=== PATIENT | female | born 1960 | race Caucasian/White ===

== ENCOUNTER 2018-03-19 12:42 | Inpatient (IN) ==
[2018-03-19 13:15] LABS: Baso % (Auto) 0.7 % (0.0-2.0); Eos # (Auto) 0.1 th/mm3 (0.0-0.4); Eos % (Auto) 2.6 % (0.0-4.0); Hematocrit 41.2 % (35.0-46.0); Hemoglobin 13.9 gm/dL (11.6-15.3); Lymph # (Auto) 1.6 th/mm3 (1.0-4.8); Lymph % (Auto) 32.3 % (9.0-44.0); Mean Corpuscular HGB Conc 33.9 % (32.0-36.0); Mean Corpuscular Hemoglobin 26.1 pg (27.0-34.0); Mean Corpuscular Volume 77.1 fL (80.0-100.0); Mean Platelet Volume 10.1 fL (7.0-11.0); Mono # (Auto) 0.4 th/mm3 (0.0-0.9); Mono % (Auto) 7.3 % (0.0-8.0); Neut # (Auto) 2.8 th/mm3 (1.8-7.7); Neut % (Auto) 57.1 % (16.0-70.0); Platelet Count 175 th/mm3 (150-450); Red Blood Count 5.33 mil/mm3 (4.00-5.30); Red Cell Distribution Width 15.3 % (11.6-17.2); White Blood Count 4.9 th/mm3 (4.0-11.0)
[2018-03-19 13:44] LABS: Alanine Aminotransferase 51 U/L (10-53); Albumin 3.8 g/dL (3.4-5.0); Anion Gap 10 meq/L (5-15); Aspartate Aminotransferase 37 U/L (15-37); Blood Urea Nitrogen 20 mg/dL (7-18); Calcium 9.3 mg/dL (8.5-10.1); Carbon Dioxide 25.5 meq/L (21.0-32.0); Chloride 102 meq/L (98-107); Glomerular Filtration Rate 42 mL/min (>89); Glucose,Random 436 mg/dL (74-106); Potassium 4.1 meq/L (3.5-5.1); Sodium 137 meq/L (136-145)
[2018-03-19 14:02] LABS: Alkaline Phosphatase 159 U/L (45-117); Thyroid Stimulating Hormone 0.896 uIU/mL (0.358-3.740); Total Protein 8.2 g/dL (6.4-8.2)
[2018-03-19 16:10] LABS: Bilirubin,Urine Negative (Negative); Clarity,Urine Clear (Clear); Color,Urine Straw (Yellw/Straw); Glucose,Urine (UA) 500 or Greater mg/dL (Negative); Leukocyte Esterase,Urine Negative (Negative); Nitrite,Urine Negative (Negative); Specific Gravity,Urine 1.017 (1.002-1.035); Squamous Epithelial Cell,Urine 1 /hpf (0-5)
[2018-03-19 16:15] LABS: Amphetamine Screen,Urine Neg (Neg); Barbiturate Screen,Urine Neg (Neg); Cannabinoid Screen,Urine Neg (Neg); Cocaine Screen,Urine Neg (Neg)
[2018-03-19 16:17] LABS: Opiate Screen,Urine Neg (Neg)
--- NOTE | 2018-03-19 17:48 | ED ---
HPI General Chief Complaint: Psychiatric Symptoms Stated Complaint: psych eval Time Seen by Provider: 03/19/18 16:44 Source: patient Mode of arrival: ambulatory Limitations: no limitations History of Present Illness HPI Narrative: 57-year-old female presents to the emergency room under a Henderson act for evaluation of delusions. History is difficult to obtain as patient has flight of ideas and pressured speech. Patient states she believes her has a mistress and gives a long, convoluted story about why she knows her is cheating on her and how knowing this information has caused her to develop hypertension and diabetes. She states she collects items around the house as proof that her is cheating on her. As a method of revenge, she put sand in her daughter's gasoline tank because she thought that her was giving it to the mistress. She then immediately starts talking about how her 's family members are illegal immigrant from [place] causing bombs throughout the [facility] for which she has been alerting the officials. Patient denies any medical complaints today. She denies hallucinations or delusions. Denies suicidal homicidal ideation. MD complaint: feels depressed Onset (ago): day(s) Duration: constant History of same: Yes Relieving factors: none Exacerbating factors: none Associated psychiatric symptoms: none Associated symptoms: denies other symptoms Treatments prior to arrival: placed on mental health hold Related Data Home Medications Medication Instructions Recorded Confirmed Unable to Obtain Home Meds 03/19/18 03/20/18 Allergies Allergy/AdvReac Type Severity Reaction Status Date / Time penicillin G Allergy Mild RASH Verified 03/20/18 00:20 Review of Systems ROS Unobtainable All other systems reviewed negative except as stated in HPI PMFSH Social History Social History Substance History: No History of Abuse Second Hand Smoke Exposure: No Smoking Status: Former smoker Tobacco Type: Cigarettes How Often Do You Have a Drink Containing Alcohol: Never Recent Travel in [facility] within the Last 8 Weeks: No Recent Out of Country Travel within the Last 8 Weeks: No Immunization History Tetanus Immunization: <5 Years Hx Influenza Vaccine This Season: No Exam Narrative Exam Narrative: GENERAL: Well-nourished, well-developed female in no acute distress. Afebrile. Ambulatory. SKIN: Focused skin assessment warm/dry. HEAD: Normocephalic. EYES: No scleral icterus. No injection or drainage. NECK: Supple, trachea midline. No JVD or lymphadenopathy. CARDIOVASCULAR: Regular rate and rhythm without murmurs, gallops, or rubs. RESPIRATORY: Breath sounds equal bilaterally. No accessory muscle use. PSYCHIATRIC: No hallucinations. Pressured speech. Flight of ideas. Good mood. Normal affect. Course Initial Documented Vital Signs Temperature 98.8 F 03/19/18 12:49 Pulse Rate 87 03/19/18 12:49 Respiratory Rate 16 03/19/18 12:49 Blood Pressure 156/83 H 03/19/18 12:49 Pulse Oximetry 99 03/19/18 12:49 Last Documented Vital Signs Temperature 97.5 F L 03/20/18 17:45 Pulse Rate 94 H 03/20/18 17:45 Respiratory Rate 18 03/20/18 17:45 Blood Pressure 143/74 H 03/20/18 17:45 Pulse Oximetry 99 03/20/18 17:45 Medical Decision Making MDM Narrative Medical decision making narrative: 57-year-old female presents to the emergency room under a Henderson act. According to the Henderson act, patient was acting delusional. On exam, patient has pressured speech and flight of ideas. She denies any physical or medical complaints. CBC is unremarkable. CMP shows mildly elevated creatinine of 1.3 and elevated glucose. Patient has a history diabetes. She is medically cleared for psychiatric evaluation. Patient was seen by psychiatrist and Henderson act was lifted. She is stable for outpatient psychiatric follow-up. Differential Diagnosis Differential Diagnosis: Psychosis, mood disorder, schizophrenia Lab Data Result diagrams: 03/19/18 12:55 03/19/18 12:55 Lab Results 03/19/18 03/19/18 03/19/18 Range/Units 12:55 12:55 13:00 WBC 4.9 (4.0-11.0) th/mm3 RBC 5.33 H (4.00-5.30) mil/mm3 Hgb 13.9 (11.6-15.3) gm/dL Hct 41.2 (35.0-46.0) % MCV 77.1 L (80.0-100.0) fL MCH 26.1 L (27.0-34.0) pg MCHC 33.9 (32.0-36.0) % RDW 15.3 (11.6-17.2) % Plt Count 175 (150-450) th/mm3 MPV 10.1 (7.0-11.0) fL Neut % (Auto) 57.1 (16.0-70.0) % Lymph % (Auto) 32.3 (9.0-44.0) % [place] % (Auto) 7.3 (0.0-8.0) % Eos % (Auto) 2.6 (0.0-4.0) % Baso % (Auto) 0.7 (0.0-2.0) % Neut # (Auto) 2.8 (1.8-7.7) th/mm3 Lymph # (Auto) 1.6 (1.0-4.8) th/mm3 [place] # (Auto) 0.4 (0.0-0.9) th/mm3 Eos # (Auto) 0.1 (0.0-0.4) th/mm3 Baso # (Auto) 0.0 (0.0-0.2) th/mm3 WBC Differential . Differential Comment Auto diff final Sodium 137 (136-145) meq/L Potassium 4.1 (3.5-5.1) meq/L Chloride 102 (98-107) meq/L Carbon Dioxide 25.5 (21.0-32.0) meq/L Anion Gap 10 (5-15) meq/L BUN 20 H (7-18) mg/dL Creatinine 1.31 H (0.50-1.00) mg/dL Estimated GFR 42 L (>89) mL/min POC Glucose (68-110) mg/dl Random Glucose 436 H (74-106) mg/dL Calcium 9.3 (8.5-10.1) mg/dL Total Bilirubin 0.7 (0.2-1.0) mg/dL AST 37 (15-37) U/L ALT 51 (10-53) U/L Alkaline Phosphatase 159 H (45-117) U/L Total Protein 8.2 (6.4-8.2) g/dL Albumin 3.8 (3.4-5.0) g/dL TSH 0.896 (0.358-3.740) uIU/mL Urine Color (Yellw/Straw) Urine Clarity (Clear) Urine pH (5.0-8.5) Ur Specific [place] (1.002-1.035) Urine Protein (Neg-Trace) mg/dL Urine Glucose (UA) (Negative) mg/dL Urine Ketones (Negative) mg/dL Urine Occult Blood (Negative) Urine Nitrate (Negative) Urine Bilirubin (Negative) Urine Urobilinogen (Less than 2) mg/dL Ur Leukocyte Esterase (Negative) Urine RBC (0-3) /hpf Urine WBC (0-5) /hpf Ur Squamous Epith Cells (0-5) /hpf Micro UA Comment Urine Culture Comments Urine Opiates Screen Neg (Neg) Ur Barbiturates Screen Neg (Neg) Ur Amphetamines Screen Neg (Neg) U Benzodiazepines Scrn Neg (Neg) Urine Cocaine Screen Neg (Neg) U Cannabinoids Screen Neg (Neg) Serum Alcohol Less than 3 (0-5) mg/dL 03/19/18 03/20/18 Range/Units 13:00 07:59 WBC (4.0-11.0) th/mm3 RBC (4.00-5.30) mil/mm3 Hgb (11.6-15.3) gm/dL Hct (35.0-46.0) % MCV (80.0-100.0) fL MCH (27.0-34.0) pg MCHC (32.0-36.0) % RDW (11.6-17.2) % Plt Count (150-450) th/mm3 MPV (7.0-11.0) fL Neut % (Auto) (16.0-70.0) % Lymph % (Auto) (9.0-44.0) % [place] % (Auto) (0.0-8.0) % Eos % (Auto) (0.0-4.0) % Baso % (Auto) (0.0-2.0) % Neut # (Auto) (1.8-7.7) th/mm3 Lymph # (Auto) (1.0-4.8) th/mm3 [place] # (Auto) (0.0-0.9) th/mm3 Eos # (Auto) (0.0-0.4) th/mm3 Baso # (Auto) (0.0-0.2) th/mm3 WBC Differential Differential Comment Sodium (136-145) meq/L Potassium (3.5-5.1) meq/L Chloride (98-107) meq/L Carbon Dioxide (21.0-32.0) meq/L Anion Gap (5-15) meq/L BUN (7-18) mg/dL Creatinine (0.50-1.00) mg/dL Estimated GFR (>89) mL/min POC Glucose 390 H (68-110) mg/dl Random Glucose (74-106) mg/dL Calcium (8.5-10.1) mg/dL Total Bilirubin (0.2-1.0) mg/dL AST (15-37) U/L ALT (10-53) U/L Alkaline Phosphatase (45-117) U/L Total Protein (6.4-8.2) g/dL Albumin (3.4-5.0) g/dL TSH (0.358-3.740) uIU/mL Urine Color Straw (Yellw/Straw) Urine Clarity Clear (Clear) Urine pH 6.0 (5.0-8.5) Ur Specific [place] 1.017 (1.002-1.035) Urine Protein 100 H (Neg-Trace) mg/dL Urine Glucose (UA) 500 or greater (Negative) mg/dL Urine Ketones Negative (Negative) mg/dL Urine Occult Blood Small H (Negative) Urine Nitrate Negative (Negative) Urine Bilirubin Negative (Negative) Urine Urobilinogen Less than 2 (Less than 2) mg/dL Ur Leukocyte Esterase Negative (Negative) Urine RBC Less than 1 (0-3) /hpf Urine WBC 1 (0-5) /hpf Ur Squamous Epith Cells 1 (0-5) /hpf Micro UA Comment Culture not ind Urine Culture Comments Culture not ind Urine Opiates Screen (Neg) Ur Barbiturates Screen (Neg) Ur Amphetamines Screen (Neg) U Benzodiazepines Scrn (Neg) Urine Cocaine Screen (Neg) U Cannabinoids Screen (Neg) Serum Alcohol (0-5) mg/dL Discharge Plan Discharge Disposition Patient Disposition: 01 Discharge Home Discharge Condition Condition: Stable Discharge Order Discharge Orders: Discharge Order (Routine); Ordered 03/20/18 Ordered By: Kaitlynn Burgos Physicians Team ED Provider: Ofelia Faye ED Midlevel Provider: Kaitlynn Burgos Primary Care Provider: UNKNOWN, Attending Provider: Case Zafar Other Providers: Chuck Alvarez Thendrex Discharge Interventions Interventions: ED Discharge Assessment Last Done: 03/20/18 12:02 Vital Signs Last Done: 03/20/18 06:39 Status ED Status: Left Department Discharge Information Discharge Date/Time: 03/20/18 12:02
[2018-03-19] MEDS ORDERED: Acetaminophen 325 MG Tablet PO ONE (23:37)
[2018-03-20] MEDS ORDERED: Aluminum/Magnesium/Simethacone Susp 30 ML UDC PO PRN (09:26)
[2018-03-20] MEDS ORDERED: Bisacodyl 10 MG Supp RECTAL PRN (09:26)
--- NOTE | 2018-03-20 13:35 | P.HPPSY ---
Provisional Diagnosis Admission Date: March 20, 2018 11:55 [place] I.: Unspecified psychosis, r/o late onset schizophrenia, schizoaffective disorder, bipolar type, r/o major neurocognitive disorder Competence Certification of Person's Competence To Provide Express and Informed Consent I have personally examined Pilar Dubois, a person being served at [facility] on, March 20, 2018 1311. Express and informed consent means consent voluntarily given in writing, by a competent person, after sufficient explanation and disclosure of the subject matter involved to enable the person to make a knowing and willful decision without any element of force, fraud, deceit, duress, or other form of constraint or coercion. This person is 18 years of age or older, is not now known to be incompetent to consent to treatment with a guardian advocate, and does not have a health care surrogate or proxy currently making medical treatment decisions. I have found this person to be one of the following: [] Competent to provide express and informed consent, as defined above, for voluntary admission to this facility and is competent to provide express and informed consent for treatment. He/she has the consistent capacity to make well reasoned, willful, and knowing decisions concerning his or her medical or mental health treatment. The person fully and consistently understands the purpose of the admission for examination/placement and is fully capable of personally exercising all rights [place] [x] Incompetent to provide express and informed consent to voluntary admission, and this is incompetent to provide express and informed consent to treatment. The person must be transferred to involuntary status and a petition for a guardian advocate filed with the Circuit Court. [] Refusing to provide express and informed consent to voluntary admission but is competent to provide express and informed consent for treatment. The person must be discharged or transferred to involuntary status. Form shall be completed within 24 hours of a person's arrival at the receiving facility and filed in the clinical record of each person: 1. Admitted on a voluntary basis 2. Permitted to provide express and informed consent to his/her own treatment 3. Allowed to transfer from involuntary to voluntary status 4. Prior to permitting a person to consent to his or her own treatment after having been previously found incompetent to consent to treatment. History of Present Illness Capacity: Lacks capacity History of Present Illness: The patient is 57-year-old woman, domiciled with her and a brother who is mentally challenged in [place], mother of 4 adult kids, unemployed, supported by Social Security, with a psychiatric history of schizoaffective disorder, unspecified psychosis, 2 previous psychiatric hospitalizations, both here at [facility], one in 2014, another one on the 2016 under the care of Dr. Mobley, documentation reviewed, history of noncompliant with medications, medical history of CVA, hypertension, diabetes mellitus, CAD, who presents to the emergency room under a Henderson act for evaluation of delusions. Initially in ER history was difficult to obtain as patient has flight of ideas and pressured speech. Patient states she believes her has a mistress and gives a long, convoluted story about why she knows her is cheating on her and how knowing this information has caused her to develop hypertension and diabetes. She states she collects items around the house as proof that her is cheating on her. As a method of revenge, she put sand in her daughter's gasoline tank because she thought that her was giving it to the mistress. She then immediately starts talking about how her 's family members are illegal immigrant from [place] causing bombs throughout the [facility] [[email or web address]] for which she has been alerting the officials. She also reports that she has found that there is a connection between some TV show and what is going on between her and his mistress. She says that her mistress is actually his niece, who is 22 years old and is already of him. She claims that they have are both plotting to get her out of her house and they are pain to people to call her house thinking that her voices telling her that they want up bay her car "and this is the reason why I put sand inside my car". During my evaluation in the ER the patient is quite internally preoccupied, suspicious, making several paranoid statements regarding the cameras in the unit and the staff. No agitated or aggressive, but quite irritable. She denies suicidal and homicidal ideation, she denies visual and auditory hallucinations. The patient is oriented 3, with no attention deficit, no fluctuation of consciousness, but impairment in immediate and recent recall. Of 3 words, the patient could not remember any of them in 5 minutes. However she has a good abstraction and executive function, good concentration and language. MMS is 26/30. Collateral information from her daughter, Fadia jackson, , was obtained, and she clarifies that her mother has been quite decompensated and escalated in the last 2 weeks. She says that she put sand knowing her car, but in her daughter's making allegations that her daughter is plotting with her to get her out of her house. She also clarifies that the patient has been very aggressive toward her and her brother who is mentally challenged. She states that the patient has been so aggressive with her , that her has been thinking in putting orders of protection against her. The patient has history of schizophrenia, 2 previous psychiatric admissions, she said that the patient does not accept the fact that she has a mental illness, she does not take her medications. She also clarifies that those alligations stating that her father is cheating on her are actually based in the fact that several years ago 1 of her family members became of her uncle "and it was a big drama in the fact, but nothing like that is happening right now". Past psychiatric history: schizoaffective disorder, unspecified psychosis, 2 previous psychiatric hospitalizations, both here at [facility], one in 2014, another one on the 2015 under the care of Dr. Mobley, documentation reviewed , history of noncompliant with medications, Past medical history of CVA, hypertension, diabetes mellitus, CAD Family psychiatric history: She has a brother who is intellectually disabled Substance history: The patient does not use any drugs or alcohol Social history: The patient was born in [facility], she lives in [facility] with her and a brother who is mentally disabled, she has 4 adult kids, unemployed, supported by Social Security - Inpatient Certification I certify that the inpatient services were ordered in accordance with Medicare regulations governing the order. This includes certification that hospital inpatient services are reasonable and necessary and in the case of services not specified as inpatient-only under 42 CFR 419.22(n), that they are appropriately provided as inpatient services in accordance to with the 2-midnight benchmark under 43 CFR 412.3(e) I certify that inpatient psychiatric hospital services are medically necessary. Evaluation and treatment and/or diagnostic testing are expected to improve the patient's condition. The patient needs on a daily basis, active treatment furnished directly by or requiring the supervision of inpatient psychiatric facility personnel. Estimated Total Length of Stay (Days): 7 Plans for Post Hospital Care: Home Review of Systems Constitutional: Denies anorexia, Denies body ache(s), Denies chills, Denies daytime sleepiness, Denies excessive sweating, Denies fatigue, Denies fever(s), Denies headache(s), Denies increased appetite, Denies lack of energy, Denies malaise, Denies night sweats, Denies weakness, Denies weight gain, Denies weight loss, Denies other Eyes: Denies blind spots, Denies blurry vision, Denies bulging eyes, Denies change in vision, Denies double vision, Denies discharge, Denies dry eyes, Denies floaters, Denies irritation, Denies itchy eyes, Denies loss of vision, Denies pain, Denies requires corrective lenses, Denies sensitivity to light, Denies other Ears, Nose, Mouth, and Throat: Denies abnormal hearing, Denies bleeding gums, Denies bad breath, Denies change in voice, Denies dental pain, Denies difficulty swallowing, Denies dizziness, Denies dry mouth, Denies ear discharge , Denies ear pain, Denies facial pain, Denies headache(s), Denies hearing loss, Denies hoarseness, Denies lip swelling, Denies nosebleed, Denies mouth lesions, Denies mouth pain, Denies nasal congestion, Denies nasal discharge, Denies nasal obstruction, Denies nasal trauma, Denies neck lump, Denies neck pain, Denies nose pain, Denies pain with swallowing, Denies poor balance, Denies post nasal drip, Denies ringing in the ears, Denies sinus pain, Denies sinus pressure , Denies sore throat, Denies throat swelling, Denies tongue swelling, Denies other Cardiovascular: Denies chest pain, Denies chest pain at rest, Denies chest pain with activity, Denies excessive sweating, Denies fainting, Denies fast heart rate, Denies foot swelling, Denies generalized swelling, Denies irregular heart rhythm, Denies leg pain with activity, Denies leg sores, Denies leg swelling, Denies lightheadedness, Denies radiating jaw, neck or arm pain, Denies rapid, pounding, or irregular heartbeat, Denies shortness of breath, Denies shortness of breath with activity, Denies shortness of breath when lying down, Denies shortness of breath causing sudden awakening, Denies slow heart rate, Denies other Respiratory: Denies change in phlegm color, Denies chest congestion, Denies cough, Denies coughing up blood, Denies excessive phlegm production, Denies pain on inspiration, Denies pain with cough, Denies shortness of breath, Denies shortness of breath with activity, Denies snoring, Denies stridor, Denies wheezing, Denies other Gastrointestinal: Denies abdominal pain, Denies belching, Denies black, tarry stools, Denies bloating, Denies bright, red blood in stools, Denies change in bowel habits, Denies constant urge to pass stool, Denies change in stools, Denies coffee ground vomit, Denies constipation, Denies cramping, Denies difficulty swallowing, Denies excessive passing of gas, Denies feeling full early, Denies heartburn, Denies incontinent of stools, Denies loose stools, Denies nausea, Denies pain with swallowing, Denies vomiting, Denies vomiting blood, Denies other Genitourinary: Denies abnormal periods, Denies abnormal vaginal bleeding, Denies absent period, Denies bleeding between periods, Denies blood in urine, Denies difficulty starting urination, Denies difficulty urinating, Denies dribbling after urination, Denies frequent nighttime urination, Denies genital itching, Denies genital lesions, Denies heavy periods, Denies hot flashes, Denies light periods, Denies nipple discharge, Denies painful intercourse, Denies painful periods, Denies painful urination, Denies pelvic pain, Denies prolapse symptoms, Denies sexual problems, Denies side pain, Denies urinary incontinence, Denies urinary urgency, Denies vaginal discharge, Denies vaginal dryness, Denies vaginal odor, Denies vaginal itching, Denies other Musculoskeletal: Denies abnormal walking, Denies back pain, Denies body aches, Denies decreased muscle mass, Denies deformity, Denies joint pain, Denies joint swelling, Denies limited joint movement, Denies loss of height, Denies muscle cramps, Denies muscle weakness, Denies neck pain, Denies numbness, Denies radiating pain into limb, Denies stiffness, Denies tingling, Denies other Skin/Breast: Denies acne, Denies bleeding lesions, Denies boil, Denies breast swelling, Denies breast skin changes, Denies breast pain, Denies breast lump, Denies change in breast shape, Denies change in hair, Denies change in skin color, Denies changing lesions, Denies dry skin, Denies excessive hair growth, Denies hair loss, Denies itching, Denies lesions, Denies nail changes, Denies new lesions, Denies nipple discharge, Denies non-healing lesions, Denies redness , Denies sensitivity to light, Denies rash, Denies skin pain, Denies skin ulcer , Denies sores, Denies stretch vernon, Denies unusual bruising, Denies wounds, Denies yellowing of the skin, Denies other Neurologic: Denies abnormal hearing, Denies abnormal movements, Denies abnormal speech, Denies abnormal walking, Denies behavioral changes, Denies burning sensations, Denies confusion, Denies dizziness, Denies fainting, Denies frequent falls, Denies headache(s), Denies lack of coordination, Denies localized weakness, Denies loss of vision, Denies memory loss, Denies numbness, Denies other visual disturbances, Denies radiating pain, Denies restless legs, Denies convulsions, Denies seizure-like activity, Denies sensory deficit, Denies tingling, Denies tingling/numbness/burning sensations, Denies tremor(s), Denies unsteadiness, Denies weakness, Denies other Psychiatric: Reports anxiety, Reports other (Paranoia, ideas of reference, aggressive behavior), Denies abnormal sleep pattern, Denies behavioral changes, Denies change in appetite, Denies change in sex drive, Denies confusion, Denies depression, Denies difficulty concentrating, Denies hearing things others do not hear, Denies hopelessness, Denies irritability, Denies lack of enjoyment, Denies memory loss, Denies mood swings, Denies panic attacks, Denies paranoia, Denies seeing things others do not see, Denies sensing things others do not sense, Denies tactile hallucinations, Denies thoughts of hurting/killing others , Denies thoughts of hurting/killing yourself Endocrine: Denies cold intolerance, Denies excessive sweating, Denies flushing, Denies heat intolerance, Denies increased hunger, Denies increased thirst, Denies increased urination, Denies rapid, pounding, or irregular heartbeat, Denies other Hematologic/Lymphatic: Denies easy bleeding, Denies easy bruising, Denies enlarged lymph nodes, Denies other Allergic/Immunologic: Denies GI upset with certain foods, Denies hives, Denies itchy eyes, Denies lip swelling, Denies seasonal runny nose, Denies throat swelling, Denies tongue swelling, Denies wheezing, Denies other PMFSH - History History Provided By: Patient - Tobacco History Second Hand Smoke Exposure: No Tobacco Use In Past 30 Days: No Smoking Status: Former smoker Tobacco Type: Cigarettes - Alcohol History How Often Do You Have a Drink Containing Alcohol: Never - Substance Use History Substance History: No History of Abuse - Travel History Recent Travel in the [facility] [[email or web address]] Within the Last 8 Weeks: No Recent Travel Out of the Country Within the Last 8 Weeks: No - Immunization History Tetanus Immunization: <5 Years Hx Influenza Vaccine This Season: No Medications and Allergies Active Medications: Active Medications Al Hydrox/Mg Hydrox/Simethicone (Mag-Al Plus Susp Liq) 30 ml PO Q6H PRN PRN Reason: DYSPEPSIA Al Hydroxide/Mg Hydroxide (Milk Of Magnesia Liq) 30 ml PO Q12H PRN PRN Reason: Mild Constipation Bisacodyl (Dulcolax Supp) 10 mg RECTAL DAILY PRN PRN Reason: SEVERE CONSITIPATION Lactulose (Lactulose Liq) 30 ml PO DAILY PRN PRN Reason: SEVERE CONSITIPATION Senna/Docusate Sodium (Courtney-Colace) 1 tab PO BID JOSE Sennosides (Senokot) 17.2 mg PO Q12H PRN PRN Reason: Moderate Constipation Venlafaxine HCl (Effexor) 25 mg PO BID JOSE Allergies Allergy/AdvReac Type Severity Reaction Status Date / Time penicillin G Allergy Mild RASH Verified 03/20/18 00:20 Home Medications Medication Instructions Recorded Confirmed Type Unable to Obtain Home Meds 03/19/18 03/20/18 History Results - Labs CBC & Chem 7: 03/19/18 12:55 03/19/18 12:55 Labs: Laboratory Results - last 24 hr 03/19/18 03/19/18 03/19/18 12:55 12:55 13:00 WBC 4.9 RBC 5.33 H Hgb 13.9 Hct 41.2 MCV 77.1 L MCH 26.1 L MCHC 33.9 RDW 15.3 Plt Count 175 MPV 10.1 Neut % (Auto) 57.1 Lymph % (Auto) 32.3 [place] % (Auto) 7.3 Eos % (Auto) 2.6 Baso % (Auto) 0.7 Neut # (Auto) 2.8 Lymph # (Auto) 1.6 [place] # (Auto) 0.4 Eos # (Auto) 0.1 Baso # (Auto) 0.0 WBC Differential . Differential Comment Auto diff final Sodium 137 Potassium 4.1 Chloride 102 Carbon Dioxide 25.5 Anion Gap 10 BUN 20 H Creatinine 1.31 H Estimated GFR 42 L POC Glucose Random Glucose 436 H Calcium 9.3 Total Bilirubin 0.7 AST 37 ALT 51 Alkaline Phosphatase 159 H Total Protein 8.2 Albumin 3.8 TSH 0.896 Urine Color Urine Clarity Urine pH Ur Specific [place] Urine Protein Urine Glucose (UA) Urine Ketones Urine Occult Blood Urine Nitrate Urine Bilirubin Urine Urobilinogen Ur Leukocyte Esterase Urine RBC Urine WBC Ur Squamous Epith Cells Micro UA Comment Urine Culture Comments Urine Opiates Screen Neg Ur Barbiturates Screen Neg Ur Amphetamines Screen Neg U Benzodiazepines Scrn Neg Urine Cocaine Screen Neg U Cannabinoids Screen Neg Serum Alcohol Less than 3 03/19/18 03/20/18 13:00 07:59 WBC RBC Hgb Hct MCV MCH MCHC RDW Plt Count MPV Neut % (Auto) Lymph % (Auto) [place] % (Auto) Eos % (Auto) Baso % (Auto) Neut # (Auto) Lymph # (Auto) [place] # (Auto) Eos # (Auto) Baso # (Auto) WBC Differential Differential Comment Sodium Potassium Chloride Carbon Dioxide Anion Gap BUN Creatinine Estimated GFR POC Glucose 390 H Random Glucose Calcium Total Bilirubin AST ALT Alkaline Phosphatase Total Protein Albumin TSH Urine Color Straw Urine Clarity Clear Urine pH 6.0 Ur Specific [place] 1.017 Urine Protein 100 H Urine Glucose (UA) 500 or greater Urine Ketones Negative Urine Occult Blood Small H Urine Nitrate Negative Urine Bilirubin Negative Urine Urobilinogen Less than 2 Ur Leukocyte Esterase Negative Urine RBC Less than 1 Urine WBC 1 Ur Squamous Epith Cells 1 Micro UA Comment Culture not ind Urine Culture Comments Culture not ind Urine Opiates Screen Ur Barbiturates Screen Ur Amphetamines Screen U Benzodiazepines Scrn Urine Cocaine Screen U Cannabinoids Screen Serum Alcohol Exam Vital signs: Vital Signs 03/19/18 22:54 03/20/18 06:39 Pulse Rate 104 H 100 H Respiratory Rate 18 17 Blood Pressure 146/85 H 148/79 H Pulse Oximetry 98 98 Intake & Output 03/19/18 03/20/18 03/20/18 18:59 06:59 18:59 Intake Total 240 / 240 Balance 240 / 240 Weight 86.183 kg Intake: Oral 240 / 240 Narrative: No EPS, no psychomotor agitation, no gait disturbance, no psychomotor retardation, no catatonia Mental Status Examination Appearance: Appropriate Consciousness: Alert Orientation: x4 Motor Activity: Normal gait Speech: Unremarkable Language: Adequate Fund of Knowledge: Adequate Attention and Concentration: Adequate Memory: Impaired Mood: Angry, Oppositional Affect: Irritable, Labile Thought Process & Associations: Loose associations Thought Content: Bizarre thinking, Ideas of reference, Preoccupations Delusion Type: Paranoid Suicidal Ideation: No Suicidal Plan: No Suicidal Intention: No Homicidal Ideation: No Homicidal Plan: No Homicidal Intention: No Insight: Poor Judgment: Poor Assessment and Plan - Plan Plan: Estimated LOS: [] days On my psychiatric evaluation today I find a patient that is irritable, oppositional, a little bit agitated, but redirectable. The patient has prominent persecutory delusions, ideas of reference, disorganized behavior and speech. The patient has been increasingly aggressive and disorganized at home to the point that she has been putting the integrity of her and her disease brother in danger. This is a patient with a psychiatric history of psychosis, schizoaffective disorder, 2 previous psychiatric hospitalizations, no compliant with her medications, aggressive behavior when she psychotic, and at this moment the patient seems to have a psychotic decompensation and she needs to be admitted in psychiatry for stabilization and safety. At this point is unclear if current presentation is related with a major neurocognitive disorder or a primary psychotic disorder, but also some deficits in cognition are observed, MMS is . I have communicated with patient's daughter about my plan, she agreed that the patient is admission and treatment. I will start Seroquel 25 mg twice daily for psychosis, Namenda 5 mg, Aricept 5 mg for cognitive decline prevention. I would guidance counselor psychiatry for second opinion, medicine to help with medication adjustment of diabetes, hypertension, acute kidney failure. Justification for Continued Inpatient Stay: Patient needs psychiatric admission for stabilization and safety.
--- NOTE | 2018-03-20 14:24 | P.CONPSY ---
Provisional Diagnosis Admission Date: March 20, 2018 11:55 [place] I.: Unspecified psychosis, r/o late onset schizophrenia, schizoaffective disorder, bipolar type, r/o major neurocognitive disorder History of Present Illness Service: Psychiatry Consult date: 03/20/18 Requesting Physician: Case Zafar Reason for Consult: Second opinion petition [facility] Primary Care Provider: UNKNOWN History of Present Illness: Patient 57-year-old white female admitted by Dr. Oneal's H&P reviewed and agreed with. Dr. Oneal is done first opinion petition supporting [facility]. I have reviewed his H&P and agree with it. Patient seen by me patient continues markedly delusional paranoid focusing on her perceived infidelities of her . She also is back noncompliant with the medication denying mental illness and need for medications. At this time I concur with Dr. Oneal feel patient does meet criteria for involuntary psychiatric hospitalization thus I will cosign second opinion petition supporting [facility] Review of Systems All other systems reviewed negative except as stated in HPI PMFSH - History History Provided By: Patient - Tobacco History Second Hand Smoke Exposure: No Tobacco Use In Past 30 Days: No Smoking Status: Former smoker Tobacco Type: Cigarettes - Alcohol History How Often Do You Have a Drink Containing Alcohol: Never - Substance Use History Substance History: No History of Abuse - Travel History Recent Travel in the [place] Within the Last 8 Weeks: No Recent Travel Out of the Country Within the Last 8 Weeks: No - Immunization History Tetanus Immunization: <5 Years Hx Influenza Vaccine This Season: No Medications and Allergies Active Medications: Active Medications Al Hydrox/Mg Hydrox/Simethicone (Mag-Al Plus Susp Liq) 30 ml PO Q6H PRN PRN Reason: DYSPEPSIA Al Hydroxide/Mg Hydroxide (Milk Of Magnesia Liq) 30 ml PO Q12H PRN PRN Reason: Mild Constipation Bisacodyl (Dulcolax Supp) 10 mg RECTAL DAILY PRN PRN Reason: SEVERE CONSITIPATION Lactulose (Lactulose Liq) 30 ml PO DAILY PRN PRN Reason: SEVERE CONSITIPATION Quetiapine Fumarate (Seroquel) 25 mg PO BID JOSE Senna/Docusate Sodium (Courtney-Colace) 1 tab PO BID JOSE Sennosides (Senokot) 17.2 mg PO Q12H PRN PRN Reason: Moderate Constipation Venlafaxine HCl (Effexor) 25 mg PO BID JOSE Allergies Allergy/AdvReac Type Severity Reaction Status Date / Time penicillin G Allergy Mild RASH Verified 03/20/18 00:20 Home Medications Medication Instructions Recorded Confirmed Type Unable to Obtain Home Meds 03/19/18 03/20/18 History Exam Vital signs: Vital Signs 03/19/18 22:54 03/20/18 06:39 03/20/18 13:27 Temperature 98.3 F Pulse Rate 104 H 100 H 82 Respiratory Rate 18 17 18 Blood Pressure 146/85 H 148/79 H 179/84 H Pulse Oximetry 98 98 Intake & Output 03/19/18 03/20/18 03/20/18 18:59 06:59 18:59 Intake Total 240 / 240 Balance 240 / 240 Weight 86.183 kg 81.3 kg Intake: Oral 240 / 240 Other: Weight On Admission 81.193 kg Narrative: Patient is sitting on her bed patient seen in her room with nurse Latha. Patient no acute distress, patient denies chest pain denies abdominal pain patient in no respiratory distress. Patient moving all 4 extremities without difficulty Mental Status Examination Appearance: Appropriate Consciousness: Alert Orientation: x4 Motor Activity: Normal gait Speech: Unremarkable Language: Adequate Fund of Knowledge: Adequate Attention and Concentration: Adequate Memory: Impaired Mood: Angry, Oppositional Affect: Irritable, Labile Thought Process & Associations: Loose associations Thought Content: Bizarre thinking, Ideas of reference, Preoccupations Delusion Type: Paranoid Suicidal Ideation: No Suicidal Plan: No Suicidal Intention: No Homicidal Ideation: No Homicidal Plan: No Homicidal Intention: No Insight: Poor Judgment: Poor Assessment and Plan - Plan Plan: Patient does meet criteria for involuntary psychiatric hospitalization of the Henderson act thus I will cosign second opinion petition supporting Henderson act Justification for Continued Inpatient Stay: At this time patient would decompensate a place to a lower level of care Request Healthcare Surrogate/Guardian Advocate?: Yes
--- NOTE | 2018-03-20 15:56 | P.CON ---
History of Present Illness Service: Hospitalist Consult date: 03/20/18 Requesting Physician: Case Zafar Reason for Consult: Medical management Primary Care Provider: UNKNOWN Chief Complaint: "I am fineI do not need to be here" History of Present Illness: Patient is a 57-year-old female who was admitted under Henderson act for evaluation of delusions on 03/19/18. She also has a past medical history of CVA , DC with stents, DM, hypertension and chronic kidney disease. She is able to give me her medical history but is unable to tell me what medication she is taking. Overall history is difficult to obtain as patient continually redirects conversation to perceived wrongs. Patient is very paranoid about her who she believes has a mistress. According to the patient this caused her to develop hypertension and diabetes. She also tells me that in the past she took insulin and it caused blindness. She is seen in her room. She is awake and alert. Denies any chest pain or shortness of breath. No nausea vomiting or diarrhea. She reports that she has had a normal appetite however she is refusing to drink water because she believes that it is all recycled and it will poison her. Is adamant that she will only use bottled water for all of her needs. Review of Systems unobtainable due to mental condition PMFSH - History History Provided By: Patient, Medical Record - Medical History Medical History: Medical History (Last Reviewed 03/20/18 @ 16:47 by CIERA Lee) CKD (chronic kidney disease) CVA (cerebral vascular accident) Diabetes HTN (hypertension) DC (myocardial infarction) - Surgical History Surgical History: Surgical History (Last Reviewed 03/20/18 @ 16:47 by CIERA Lee) H/O section H/O heart artery stent H/O myomectomy History of suburethral sling procedure Hx of appendectomy - Family History Family History: Family History (Last Reviewed 03/20/18 @ 16:47 by CIERA Lee) Other Family history unobtainable due to patient's condition - Tobacco History Second Hand Smoke Exposure: No Tobacco Use In Past 30 Days: No Smoking Status: Former smoker Tobacco Type: Cigarettes - Alcohol History How Often Do You Have a Drink Containing Alcohol: Never - Substance Use History Substance History: No History of Abuse - Travel History Recent Travel in the [place] Within the Last 8 Weeks: No Recent Travel Out of the Country Within the Last 8 Weeks: No - Immunization History Tetanus Immunization: <5 Years Hx Influenza Vaccine This Season: No Medications and Allergies Active Medications: Active Medications Al Hydrox/Mg Hydrox/Simethicone (Mag-Al Plus Susp Liq) 30 ml PO Q6H PRN PRN Reason: DYSPEPSIA Al Hydroxide/Mg Hydroxide (Milk Of Magnesia Liq) 30 ml PO Q12H PRN PRN Reason: Mild Constipation Bisacodyl (Dulcolax Supp) 10 mg RECTAL DAILY PRN PRN Reason: SEVERE CONSITIPATION Lactulose (Lactulose Liq) 30 ml PO DAILY PRN PRN Reason: SEVERE CONSITIPATION Quetiapine Fumarate (Seroquel) 25 mg PO BID JOSE Senna/Docusate Sodium (Courtney-Colace) 1 tab PO BID JOSE Sennosides (Senokot) 17.2 mg PO Q12H PRN PRN Reason: Moderate Constipation Venlafaxine HCl (Effexor) 25 mg PO BID JOSE Allergies Allergy/AdvReac Type Severity Reaction Status Date / Time penicillin G Allergy Mild RASH Verified 03/20/18 00:20 Home Medications Medication Instructions Recorded Confirmed Type Unable to Obtain Home Meds 03/19/18 03/20/18 History Physical Exam Vital signs: Vital Signs 03/19/18 22:54 03/20/18 06:39 03/20/18 13:27 Temperature 98.3 F Pulse Rate 104 H 100 H 82 Respiratory Rate 18 17 18 Blood Pressure 146/85 H 148/79 H 179/84 H Pulse Oximetry 98 98 Intake & Output 03/19/18 03/20/18 03/20/18 18:59 06:59 18:59 Intake Total 240 / 240 Balance 240 / 240 Weight 86.183 kg 81.3 kg Intake: Oral 240 / 240 Other: Weight On Admission 81.193 kg Narrative: GENERAL: Well-nourished, well-developed adult female in no obvious distress. SKIN: Warm and dry. HEAD: Atraumatic. Normocephalic. CARDIOVASCULAR: Regular rate and rhythm. RESPIRATORY: No accessory muscle use. Clear to auscultation. Breath sounds equal bilaterally. GASTROINTESTINAL: Abdomen soft, non-tender, non-distended. Positive bowel sounds. MUSCULOSKELETAL: Extremities without clubbing, cyanosis, or edema. No obvious deformities. NEUROLOGICAL: Awake and alert. No obvious cranial nerve deficits. Motor grossly within normal limits. Normal speech. Assessment and Plan - Plan Patient is a 57-year-old female admitted for Henderson act due to paranoid delusions. Past medical history includes CVA, hypertension, diabetes, and chronic kidney disease. Patient is a poor historian. Hospitalist service consulted for medical management. Patient is unable to provide home medications. Personally contacted patient's pharmacy which is [facility] in [place] to confirm current medications. Psychosis/schizophrenia -Managed by psychiatry -Tox negative; UA negative Diabetes A1c 10.0 in 2017; A1C ordered. Blood glucose 390 at admit. -Patient refuses insulin. Agrees to metformin 500 mg twice daily only. Will try to also restart home glipizide. -Per pharmacy report, home medication is Januvia 100 mg daily, metformin 1000 mg daily and glipizide 5 mg daily Hypertension -restart home lisinopril 20 mg. Hold hydrochlorothiazide due to concern for dehydration -Restart home metoprolol 50 mg daily Chronic kidney disease-stage III -Baseline GFR 40's -Mildly elevated creatinine 1.31; concern for dehydration due to refusal to drink water. Monitor. History of CVA Restart home Plavix 75 and ASA 162 DVT prophylaxis: Ambulatory; on ASA and Plavix Discussed with: Patient and nurse Thank you for this consult. We look forward to assisting you with the medical management of this patient.
[2018-03-20] MEDS: QUEtiapine 25 MG Tablet PO SCH ×2 (16:08→20:32)
[2018-03-20] MEDS: Metoprolol Tartrate 25 MG Tablet PO SCH (20:31)
[2018-03-20] MEDS: Senna/Docusate Sodium 8.6/50 MG Tablet PO SCH (20:32)
[2018-03-21] MEDS: Metoprolol Tartrate 25 MG Tablet PO SCH ×3 (06:40→21:35)
[2018-03-21] MEDS: glipiZIDE 5 MG Tablet PO SCH (06:41)
[2018-03-21] MEDS: Lisinopril 20 MG Tablet PO SCH (09:09)
[2018-03-21] MEDS: Senna/Docusate Sodium 8.6/50 MG Tablet PO SCH ×2 (09:09→21:35)
[2018-03-21] MEDS: QUEtiapine 25 MG Tablet PO SCH ×2 (09:10→21:35)
[2018-03-21 10:26] LABS: Calcium 9.7 mg/dL (8.5-10.1); Carbon Dioxide 24.7 meq/L (21.0-32.0); Chol/HDL Ratio 5.14 Ratio; HDL Cholesterol 43.7 mg/dL (40.0-60.0); Potassium 4.5 meq/L (3.5-5.1)
--- NOTE | 2018-03-21 11:17 | P.PN ---
Subjective Interval history: Patient is seen sitting in day room. She is very agitated and demanding to see a social service liaison. Nursing reports that she has refused to take all of her medications except for her metoprolol. She is also drinking very little water and she is convinced that it is all contaminated. Refuses to answer any questions. Physical Exam Vital signs: Vital Signs 03/20/18 13:27 03/20/18 17:45 03/20/18 19:55 Temperature 98.3 F 97.5 F L Pulse Rate 82 94 H 78 Respiratory Rate 18 18 16 Blood Pressure 179/84 H 143/74 H 151/89 H Pulse Oximetry 99 03/21/18 06:07 Temperature 98.1 F Pulse Rate 82 Respiratory Rate 16 Blood Pressure 181/80 H Pulse Oximetry 95 Intake & Output 03/20/18 03/21/18 03/21/18 18:59 06:59 18:59 Intake Total 480 / 480 Balance 480 / 480 Weight 81.3 kg 81.9 kg Intake: Oral 480 / 480 Other: Date of Last Bowel Movement 03/20/18 03/20/18 Weight On Admission 81.193 kg Narrative: GENERAL: Well-nourished, well-developed adult female in no obvious distress. Very anxious and angry. SKIN: Warm and dry. HEAD: Atraumatic. Normocephalic. CARDIOVASCULAR: Regular rate and rhythm. RESPIRATORY: No accessory muscle use. Clear to auscultation. Breath sounds equal bilaterally. GASTROINTESTINAL: Abdomen soft, non-tender, non-distended. Positive bowel sounds. MUSCULOSKELETAL: Extremities without clubbing, cyanosis, or edema. No obvious deformities. NEUROLOGICAL: Awake and alert. No obvious cranial nerve deficits. Motor grossly within normal limits. Normal speech. Results - Labs CBC & Chem 7: 03/19/18 12:55 03/21/18 09:15 Laboratory Results - last 24 hr 03/21/18 03/21/18 06:33 09:15 Sodium 138 Potassium 4.5 Chloride 102 Carbon Dioxide 24.7 Anion Gap 11 BUN 29 H Creatinine 1.70 H Estimated GFR 31 L POC Glucose 313 H Random Glucose 405 H Calcium 9.7 Triglycerides 230 H Cholesterol 225 H LDL Cholesterol, Calc 135 H HDL Cholesterol 43.7 Cholesterol/HDL Ratio 5.14 Assessment and Plan - Plan Patient is a 57-year-old female admitted for Henderson act due to paranoid delusions. Past medical history includes CVA, hypertension, diabetes, and chronic kidney disease. Patient is a poor historian. Hospitalist service consulted for medical management. Patient is unable to provide home medications. Personally contacted patient's pharmacy which is [facility] in [place] to confirm current medications. Psychosis/schizophrenia -Managed by psychiatry -Tox negative; UA negative Diabetes A1c 10.0 in 2017; A1C pending 03/21. Blood glucose 390 at admit. -Patient refuses insulin. Agrees to metformin 500 mg twice daily only. Will try to also restart home glipizide. -Per pharmacy report, home medication is Januvia 100 mg daily, metformin 1000 mg daily and glipizide 5 mg daily Hypertension -restart home lisinopril 20 mg. Hold hydrochlorothiazide due to concern for dehydration -Restart home metoprolol 50 mg daily Chronic kidney disease-stage III -Baseline GFR 40's -Mildly elevated creatinine 1.31 ---> 1.7; concern for dehydration due to refusal to drink water. Monitor and encourage fluids. If unwilling to take p.o. consider transferring for IV fluids. History of CVA Restart home Plavix 75 and ASA 162 Nonadherence to medical plan -Patient is refusing multiple medications and also refusing to drink water. Reiterated to her the importance of following the medical plan however she is to agitated at this time to comply. DVT prophylaxis: Ambulatory; on ASA and Plavix Discussed with: Patient and nurse
[2018-03-21 17:01] LABS: Hemoglobin A1c 9.6 % (4.3-6.0)
--- NOTE | 2018-03-21 17:03 | P.PNPSY ---
Subjective Remarks: Patient seen and purcell with floor staff, chart reviewed, patient trying mixed compliance medication. Patient still continues delusional related to desire for bottled water. In a concern about food and her digestive tract. She does deny voices at the present time. It does deny suicidality. Review of Systems All other systems reviewed negative except as stated in HPI Mental Status Examination Appearance: Appropriate Consciousness: Alert Orientation: x4 Motor Activity: Normal gait Speech: Unremarkable Language: Adequate Fund of Knowledge: Adequate Attention and Concentration: Adequate Memory: Impaired Mood: Angry, Oppositional Affect: Irritable, Labile Thought Process & Associations: Loose associations Thought Content: Bizarre thinking, Ideas of reference, Preoccupations Delusion Type: Paranoid Suicidal Ideation: No Suicidal Plan: No Suicidal Intention: No Homicidal Ideation: No Homicidal Plan: No Homicidal Intention: No Insight: Poor Judgment: Poor Assessment and Plan - Assessment (1) Schizoaffective disorder, bipolar type Code(s): F25.0 - Schizoaffective disorder, bipolar type Status: Acute - Plan Plan: Patient remained psychotic and delusional, with mixed compliance with medication for now continue treatment Justification for Continued Inpatient Stay: At this time patient would decompensate a place to a lower level of care Discharge Planning: To be determined Request Healthcare Surrogate/Guardian Advocate?: Yes
[2018-03-22] MEDS: glipiZIDE 5 MG Tablet PO SCH (06:00)
[2018-03-22 08:32] LABS: Calcium 9.1 mg/dL (8.5-10.1); Carbon Dioxide 28.1 meq/L (21.0-32.0); Potassium 4.2 meq/L (3.5-5.1)
[2018-03-22 08:53] LABS: CKMB Percent 0.8 % (0.0-4.0); Creatine Kinase MB 1.7 ng/mL (0.5-3.6)
[2018-03-22] MEDS: Metoprolol Tartrate 25 MG Tablet PO SCH (09:41)
[2018-03-22] MEDS: QUEtiapine 25 MG Tablet PO SCH (09:41)
[2018-03-22] MEDS: Senna/Docusate Sodium 8.6/50 MG Tablet PO SCH (09:41)
[2018-03-22] MEDS: Lisinopril 20 MG Tablet PO SCH (09:41)
--- NOTE | 2018-03-22 11:13 | P.PN ---
Subjective Interval history: Patient is seen sitting in day room. She is calmer and more agreeable to treatment plan today. She is drinking more water now that she has bottled water. Denies any shortness of breath or chest pain. Denies any nausea vomiting or diarrhea. She tells me that she is eating well. Physical Exam Vital signs: Vital Signs 03/21/18 17:55 03/22/18 06:09 Temperature 98.1 F 98.6 F Pulse Rate 91 H 83 Respiratory Rate 18 16 Blood Pressure 129/80 143/72 H Pulse Oximetry 97 96 Intake & Output 03/21/18 03/22/18 03/22/18 18:59 06:59 18:59 Intake Total 240 / 240 Balance 240 / 240 Intake: Oral 240 / 240 Other: Date of Last Bowel Movement 03/20/18 03/21/18 03/21/18 Narrative: GENERAL: Well-nourished, well-developed adult female in no obvious distress. Very anxious and angry. SKIN: Warm and dry. HEAD: Atraumatic. Normocephalic. CARDIOVASCULAR: Regular rate and rhythm. RESPIRATORY: No accessory muscle use. Clear to auscultation. Breath sounds equal bilaterally. GASTROINTESTINAL: Abdomen soft, non-tender, non-distended. Positive bowel sounds. MUSCULOSKELETAL: Extremities without clubbing, cyanosis, or edema. No obvious deformities. NEUROLOGICAL: Awake and alert. No obvious cranial nerve deficits. Motor grossly within normal limits. Normal speech. Results - Labs CBC & Chem 7: 03/19/18 12:55 03/22/18 07:35 Laboratory Results - last 24 hr 03/21/18 03/22/18 09:15 07:35 Sodium 136 Potassium 4.2 Chloride 100 Carbon Dioxide 28.1 Anion Gap 8 BUN 28 H Creatinine 1.38 H Estimated GFR 39 L Random Glucose 330 H Hemoglobin A1c 9.6 H Calcium 9.1 Total Creatine Kinase 214 H CK-MB (CK-2) 1.7 CK-MB (CK-2) % 0.8 Assessment and Plan - Plan Patient is a 57-year-old female admitted for Henderson act due to paranoid delusions. Past medical history includes CVA, hypertension, diabetes, and chronic kidney disease. Patient is a poor historian. Hospitalist service consulted for medical management. Patient is unable to provide home medications. Personally contacted patient's pharmacy which is [facility] in [place] to confirm current medications. Psychosis/schizophrenia -Managed by psychiatry -Tox negative; UA negative Diabetes A1c 10.0 in 2017; A1C pending 03/21. Blood glucose 390 at admit -consistently in the 3-400. -Patient refuses insulin. Agrees to metformin 500 mg twice daily only. Will try to also restart home glipizide. -Metformin briefly stopped due to lowered GFR of 31. Patient is very dehydrated as she is refusing water. Hold metformin until GFR improves. Add Januvia 25 mg daily(renal dose); consider increasing Januvia 200 mg when kidney function recovers. -Per pharmacy report, home medication is Januvia 100 mg daily, metformin 1000 mg daily and glipizide 5 mg daily Hypertension -restart home lisinopril 20 mg. Hold hydrochlorothiazide due to concern for dehydration -Restart home metoprolol 50 mg daily Chronic kidney disease-stage III -Baseline GFR 40's -Mildly elevated creatinine 1.31 --> 1.7 -->1.38; concern for dehydration due to refusal to drink tap water. Monitor and encourage fluids. If unwilling to take p.o. consider transferring for IV fluids. 03/22 - Patient currently agreeing to drink bottled water. History of CVA Restart home Plavix 75 and ASA 162 Nonadherence to medical plan -Patient is refusing multiple medications and also refusing to drink water. Reiterated to her the importance of following the medical plan however she is to agitated at this time to comply. DVT prophylaxis: Ambulatory; on ASA and Plavix Discussed with: Patient and nurse
--- NOTE | 2018-03-22 13:03 | P.DSPSY ---
Psychiatry Discharge Summary Inpatient Psychiatric care?: Yes Advance Directives: No Mental Health Advance Directive: No Health Care Proxy: No - Admission Admission Date: March 20, 2018 11:55 - Admission Diagnosis (1) Schizoaffective disorder, bipolar type Code(s): F25.0 - Schizoaffective disorder, bipolar type Brief History: The patient is 57-year-old woman, domiciled with her and a brother who is mentally challenged in [place], mother of 4 adult kids, unemployed, supported by Social Security, with a psychiatric history of schizoaffective disorder, unspecified psychosis, 2 previous psychiatric hospitalizations, both here at [facility], one in 2014, another one on the 2016 under the care of Dr. Mobley, documentation reviewed, history of noncompliant with medications, medical history of CVA, hypertension, diabetes mellitus, CAD, who presents to the emergency room under a Henderson act for evaluation of delusions. Initially in ER history was difficult to obtain as patient has flight of ideas and pressured speech. Patient states she believes her has a mistress and gives a long, convoluted story about why she knows her is cheating on her and how knowing this information has caused her to develop hypertension and diabetes. She states she collects items around the house as proof that her is cheating on her. As a method of revenge, she put sand in her daughter's gasoline tank because she thought that her was giving it to the mistress. She then immediately starts talking about how her 's family members are illegal immigrant from [place] causing bombs throughout the [facility] for which she has been alerting the officials. She also reports that she has found that there is a connection between some TV show and what is going on between her and his mistress. She says that her mistress is actually his niece, who is 22 years old and is already of him. She claims that they have are both plotting to get her out of her house and they are pain to people to call her house thinking that her voices telling her that they want up bay her car "and this is the reason why I put sand inside my car". During my evaluation in the ER the patient is quite internally preoccupied, suspicious, making several paranoid statements regarding the cameras in the unit and the staff. No agitated or aggressive, but quite irritable. She denies suicidal and homicidal ideation, she denies visual and auditory hallucinations. The patient is oriented 3, with no attention deficit, no fluctuation of consciousness, but impairment in immediate and recent recall. Of 3 words, the patient could not remember any of them in 5 minutes. However she has a good abstraction and executive function, good concentration and language. MMS is 26/30. Collateral information from her daughter, Fadia jackson, , was obtained, and she clarifies that her mother has been quite decompensated and escalated in the last 2 weeks. She says that she put sand knowing her car, but in her daughter's making allegations that her daughter is plotting with her to get her out of her house. She also clarifies that the patient has been very aggressive toward her and her brother who is mentally challenged. She states that the patient has been so aggressive with her , that her has been thinking in putting orders of protection against her. The patient has history of schizophrenia, 2 previous psychiatric admissions, she said that the patient does not accept the fact that she has a mental illness, she does not take her medications. She also clarifies that those alligations stating that her father is cheating on her are actually based in the fact that several years ago 1 of her family members became of her uncle "and it was a big drama in the fact, but nothing like that is happening right now". Past psychiatric history: schizoaffective disorder, unspecified psychosis, 2 previous psychiatric hospitalizations, both here at [facility], one in 2014, another one on the 2015 under the care of Dr. Mobley, documentation reviewed , history of noncompliant with medications, Past medical history of CVA, hypertension, diabetes mellitus, CAD Family psychiatric history: She has a brother who is intellectually disabled Substance history: The patient does not use any drugs or alcohol Social history: The patient was born in [facility], she lives in [facility] with her and a brother who is mentally disabled, she has 4 adult kids, unemployed, supported by Social Security Tobacco Use In Past 30 Days: No How Often Do You Have a Drink Containing Alcohol: Never Hospital Course: Patient's hospital course was uneventful, she showed compliance with the medication from day 1 will times lose some questioning her need for the medication. However she is sleeping better she is calmer more appropriate for delusions R diminishing. She now has serious doubts as having any affairs. She does wish to go home she is going to be with her . She is willing to be compliant with medications and willing to follow up mental health services through [facility] patient denies suicidality homicidality voice or visions. At this time she no longer meets Henderson criteria we will discharge patient today to herself follow-up [facility] with Rx 1 month - Discharge Discharge Date: 03/22/18 - Discharge Diagnosis (1) Schizoaffective disorder, bipolar type Code(s): F25.0 - Schizoaffective disorder, bipolar type Status: Acute Discharge Disposition: Home - Discharge Instructions Discharge Diet: Regular Diet Activities You Can Perform: Regular- No Restrictions - Discharge Time > 30 minutes Mental Status Examination Appearance: Appropriate Consciousness: Alert Orientation: x4 Motor Activity: Normal gait Speech: Unremarkable Language: Adequate Fund of Knowledge: Adequate Attention and Concentration: Adequate Memory: Impaired Mood: Angry, Oppositional Affect: Irritable, Labile Thought Process & Associations: Loose associations Thought Content: Bizarre thinking, Ideas of reference, Preoccupations Delusion Type: Paranoid Suicidal Ideation: No Suicidal Plan: No Suicidal Intention: No Homicidal Ideation: No Homicidal Plan: No Homicidal Intention: No Insight: Poor Judgment: Poor Discharge/Advance Care Plan - Results Vital Signs: Last Vital Signs Temp 98.6 F 03/22/18 06:09 Pulse 83 03/22/18 06:09 Resp 16 03/22/18 06:09 BP 143/72 H 03/22/18 06:09 Pulse Ox 96 03/22/18 06:09 Lab Results: Abnormal Lab Results 03/21/18 03/22/18 09:15 07:35 Sodium 136 Potassium 4.2 Chloride 100 Carbon Dioxide 28.1 Anion Gap 8 BUN 28 H Creatinine 1.38 H Estimated GFR 39 L Random Glucose 330 H Hemoglobin A1c 9.6 H Calcium 9.1 Total Creatine Kinase 214 H CK-MB (CK-2) 1.7 CK-MB (CK-2) % 0.8 Laboratory Results Hemoglobin A1c 9.6 % (4.3-6.0) H 03/21/18 09:15 Triglycerides 230 mg/dL (42-150) H 03/21/18 09:15 Cholesterol 225 mg/dL (120-200) H 03/21/18 09:15 LDL Cholesterol, Calc 135 mg/dL (0-99) H 03/21/18 09:15 HDL Cholesterol 43.7 mg/dL (40.0-60.0) 03/21/18 09:15 TSH 0.896 uIU/mL (0.358-3.740) 03/19/18 12:55 Urine Culture Comments Culture not ind 03/19/18 13:00 Summary of Procedures: None done Pending Results: None - Medications Number of antipsychotic medications at discharge: 1 - Discharge Care Plan Goals to Promote Your Health: * To prevent worsening of your condition and complications * To maintain your health at the optimal level Directions to Meet Your Goals: Take your medications as prescribed Follow your dietary instruction Follow activity as directed Keep your appointments as scheduled Take your immunizations and boosters as scheduled If your symptoms worsen call your PCP, if no PCP go to Urgent Care Center or Emergency Room For 12/03 questions related to your inpatient stay or results of tests pending at discharge, please contact Dr. Chuck Alvarez MD at Smoking is Dangerous to Your Health. Avoid second hand smoking
== END 2018-03-22 16:20 | disposition home or self-care (01) ==
LOC: NEPJ 12:42 → H260 03-20 11:55
PROVIDERS: ADMIT Psychiatry & Neurology Psychiatry; ATTEND Psychiatry & Neurology Psychiatry